=== PATIENT | female | born 1960 | race Hispanic/Latino ===

== ENCOUNTER 2025-08-14 07:52 | Emergency (ER) | payer OTHER, MEDICARE ==
[~2025-08-14] VITALS: Ht 152.4 cm; Wt 80.0 kg
[2025-08-14] MEDS ORDERED: LIPITOR40 MG PO (08:01)
[2025-08-14] MEDS ORDERED: ACETAMINOPHEN 325 MG TAB PO ONE (09:45)
== END 2025-08-14 09:54 | disposition home or self-care (01) ==
LOC: ED 07:52
DX: S40.022A Contusion of left upper arm, initial encounter (principal); S00.83XA Contusion of other part of head, initial encounter; S00.511A Abrasion of lip, initial encounter; V49.9XXA Car occupant (driver) (passenger) injured in unspecified traffic accident, initial encounter
CPT/HCPCS: 70486; 73060; 99284-25; A9270